=== PATIENT | female | born 1970 | race Caucasian/White ===

== ENCOUNTER 2016-09-27 18:09 | Observation (INO) | payer BC ==
[2016-09-27] MEDS ORDERED: ASPIRIN 81 MG CHEW PO STA (18:31)
--- NOTE | 2016-09-27 18:35 | ED ---
Chest Pain HPI - General Chief Complaint: Chest Pain Stated Complaint: Abn EKG Time Seen by Provider: 09/27/16 18:21 Source: patient, RN notes reviewed Mode of arrival: ambulatory Limitations: no limitations - History of Present Illness Initial Comments: This is a 46-year-old female with a history of anxiety and a family history of heart disease who states she's had episodes of chest pain that feel like a weight on her minutes for them and mid chest area. For about 2 months especially over last 3 weeks he states he been under last stress at work as she works shift for divorce many hours. She does have a prior history of right breast cancer with a lumpectomy and radiation therapy. She is not a smoker she has no known heart disease herself no other issues or lung disease or other symptoms. Or complaints no fevers chills sweats cough. She had EKG done at doctor's office which was abnormal. MD Complaint: chest pain, other - Related Data Home Medications Medication Instructions Recorded Confirmed Calcium Carbonate [Calcium] 600 mg PO DAILY 09/27/16 09/27/16 Cholecalciferol [Vitamin D3] 1,000 unit PO DAILY 09/27/16 09/27/16 Cyanocobalamin [Vitamin B-12] 500 mcg PO DAILY 09/27/16 09/27/16 Regina-3 Fatty Acids/Fish Oil [Fish 1 cap PO DAILY 09/27/16 09/27/16 Oil 1,000 mg Softgel] Vitamin E 1,000 unit PO DAILY 09/27/16 09/27/16 Allergies Allergy/AdvReac Type Severity Reaction Status Date / Time prednisone Allergy Unknown Verified 09/27/16 19:15 Review of Systems ROS Statement: Those systems with pertinent positive or pertinent negative responses have been documented in the HPI. ROS Other: All systems not noted in ROS Statement are negative. EKG Findings - EKG Results: EKG: interpreted by MATTHIEU, sinus rhythm (Sinus rhythm of 74. Interval 156 QRS duration 84 daily since QTC of 370/[address]-T wave configuration no change from the office there is evidence of inferior changes which may represent ischemia.) Past Medical History Past Medical History: Cancer Additional Past Medical History / Comment(s): breast cancer History of Any Multi-Drug Resistant Organisms: None Reported Past Surgical History: Breast Surgery Past Psychological History: Anxiety, Depression Smoking Status: Never smoker Past Alcohol Use History: Occasional Past Drug Use History: None Reported General Exam - General Exam Comments Initial Comments: This is a well-developed well-nourished awake alert oriented 3 female Limitations: no limitations General appearance: alert, anxious Head exam: Present: atraumatic, normocephalic, normal inspection Eye exam: Present: normal appearance, PERRL, EOMI. Absent: scleral icterus, conjunctival injection, periorbital swelling ENT exam: Present: normal exam, mucous membranes moist Neck exam: Present: normal inspection. Absent: tenderness, meningismus, lymphadenopathy Respiratory exam: Present: normal lung sounds bilaterally. Absent: respiratory distress, wheezes, rales, rhonchi, stridor Cardiovascular Exam: Present: regular rate, normal rhythm, normal heart sounds. Absent: systolic murmur, diastolic murmur, rubs, gallop, clicks GI/Abdominal exam: Present: soft, normal bowel sounds. Absent: distended, tenderness, guarding, rebound, rigid Extremities exam: Present: normal inspection, full ROM, normal capillary refill. Absent: tenderness, pedal edema, joint swelling, calf tenderness Back exam: Present: normal inspection Neurological exam: Present: alert, oriented X3, CN II-XII intact Psychiatric exam: Present: normal affect, normal mood Skin exam: Present: warm, dry, intact, normal color. Absent: rash Course Vital Signs 09/27/16 09/27/16 09/27/16 18:09 19:10 19:16 Temperature 99.4 F Pulse Rate 73 77 81 Respiratory 18 18 18 Rate Blood Pressure 133/81 126/79 122/74 O2 Sat by Pulse 98 100 98 Oximetry 09/27/16 09/27/16 19:25 19:33 Temperature Pulse Rate 75 80 Respiratory 18 18 Rate Blood Pressure 113/62 113/68 O2 Sat by Pulse 98 98 Oximetry Chest Pain MDM - MDM I did review the x-ray report no acute findings. Patient did get relief from oxygen and nitroglycerin. Patient will be admitted for evaluation by cardiology. Did discuss this with her and her . Also discussed with the hospitalist. Disposition Clinical Impression: Chest pain, Unstable angina pectoris, Nonspecific ST-T wave electrocardiographic changes Disposition: ADMITTED IP TO THIS [facility] Condition: Stable
[2016-09-27 18:57] LABS: Basophils % (A) 0 %; CH 31.2; Eosinophils # (A) 0.2 k/uL (0-0.7); Eosinophils % (A) 2 %; HCT 46.4 % (34.0-46.0); HDW 2.39; HGB 16.2 gm/dL (11.4-16.0); Luc # (Auto) 0.17; Luc % (Auto) 2; Lymphocytes # (A) 1.8 k/uL (1.0-4.8); Lymphocytes % (A) 18 %; MCH 31.2 pg (25.0-35.0); MCV 89.2 fL (80.0-100.0); Mean Platelet Volume 6.4; Monocytes # (A) 0.5 k/uL (0-1.0); Monocytes % (A) 5 %; Neutrophils # (A) 7.4 k/uL (1.3-7.7); Neutrophils % (A) 74 %; RDW 12.4 % (11.5-15.5); WBC 10.1 k/uL (3.8-10.6)
[2016-09-27 19:06] LABS: ALT 25 U/L (9-52); AST 19 U/L (14-36); Alkaline Phosphatase 54 U/L (38-126); Anion Gap 11 mmol/L; Blood Urea Nitrogen 14 mg/dL (7-17); Calcium 10.3 mg/dL (8.4-10.2); Carbon Dioxide 27 mmol/L (22-30); Chloride 102 mmol/L (98-107); Glucose 100 mg/dL (74-99); Non-African American GFR(MDRD) >60 (>60 ml/min/1.73 sqM); Potassium 4.2 mmol/L (3.5-5.1); Sodium 140 mmol/L (137-145); Total Bilirubin 0.6 mg/dL (0.2-1.3); Total Protein 7.8 g/dL (6.3-8.2)
[2016-09-27 19:08] LABS: INR 1.1 (<1.1); Partial Thromboplastin Time 26.1 sec (22.0-30.0); Prothrombin Time 11.2 sec (9.0-12.0)
[2016-09-27] MEDS: NITROGLYCERIN SL TABS 0.4 MG TAB SUBLINGUAL STA ×3 (19:10→19:26)
--- NOTE | 2016-09-27 19:15 | XR ---
EXAMINATION TYPE: XR chest 2V DATE OF EXAM: 09/27/2016 7:10 PM COMPARISON: 03/04/2012 HISTORY: Abnormal cardiogram. Chest pain. TECHNIQUE: Frontal and lateral views of the chest are obtained. FINDINGS: Heart and mediastinum are normal. Lungs are clear of infiltrate. There are surgical clips over the right chest. There are chest leads. There are no hilar masses. Bony thorax is intact. IMPRESSION: No cardiopulmonary disease. No adverse change compared to old exam.
[2016-09-27 19:19] LABS: Creatine Kinase 52 U/L (30-135)
[2016-09-27 19:32] LABS: Creatine Kinase MB <0.2 ng/mL (0.0-2.4); Troponin I <0.012 ng/mL (0.000-0.034)
[2016-09-27] MEDS ORDERED: HEPARIN SODIUM,PORCINE 5,000 UNIT/ML 1 ML VIAL IV ONE (20:05)
[2016-09-27] MEDS ORDERED: NITROGLYCERIN SL TABS 0.4 MG TAB SUBLINGUAL PRN (20:05)
[2016-09-27] MEDS ORDERED: HEPARIN SODIUM,PORCINE/D5W PMX 25,000 UNIT in DEXTROSE/WATER 1 500ML.BAG IV SCH (20:15)
[2016-09-27] MEDS ORDERED: SODIUM CHLORIDE 0.9% 1,000 ML IV SCH (20:15)
[2016-09-27 21:16] VITALS: BMI 25.5
[2016-09-28] MEDS: NITROGLYCERIN OINT 1 INCH/GM PACKET TOPICAL SCH ×4 (00:39→11:31)
[2016-09-28 02:20] LABS: Creatine Kinase 42 U/L (30-135)
[2016-09-28 02:33] LABS: Creatine Kinase MB <0.2 ng/mL (0.0-2.4); Troponin I <0.012 ng/mL (0.000-0.034)
[2016-09-28] MEDS ORDERED: ACETAMINOPHEN TAB 325 MG TAB PO PRN (04:47)
[2016-09-28 07:50] LABS: Cholesterol 201 mg/dL (<200); HDL Cholesterol 70 mg/dL (40-60); Triglycerides 47 mg/dL (<150)
[2016-09-28 08:02] LABS: Creatine Kinase 39 U/L (30-135)
[2016-09-28 08:13] LABS: Creatine Kinase MB <0.2 ng/mL (0.0-2.4); Troponin I <0.012 ng/mL (0.000-0.034)
[2016-09-28] MEDS ORDERED: CALCIUM CARBONATE 500 MG CHEWABLE PO SCH (09:00)
[2016-09-28] MEDS ORDERED: NON-FORMULARY DRUG (Omega-3 Fatty Acids/Fish Oil [Fish Oil 1,000 Mg Softgel] 1 CAP) PO SCH (09:00)
[2016-09-28] MEDS ORDERED: ASPIRIN 325 MG TAB PO SCH (09:00)
--- NOTE | 2016-09-28 10:15 | CONS ---
DATE OF CONSULTATION: 09/28/2016 CHIEF COMPLAINT: Chest pain. Tameka is a 46-year-old lady with no significant past medical history, who presented to the hospital complaining of chest pain. She went to her primary care physician's office with vague and nondescript discomfort in her chest that has been going on for about 2 months. She primarily describes it as stress, she is under quite a bit of stress and there is also a lot of personal anxiety. She was evaluated in the primary care physician's office. An EKG showed sinus rhythm with extensive anterolateral ST-T wave changes. We do not have an old EKG on her. Since admission she has remained pain free. Three sets of cardiac enzymes are negative. I talked to her about her EKG findings, her symptomatology, and advised her to undergo cardiac catheterization. Understanding all of the issues, she will undergo a stress Cardiolite study. If there is ischemia, she will undergo cardiac catheterization. PAST MEDICAL HISTORY: Negative for hypertension, diabetes, dyslipidemia. FAMILY HISTORY: Significant for coronary artery disease in her father. SOCIAL HISTORY: Negative for smoking, EtOH abuse or drug abuse. REVIEW OF SYSTEMS: HEENT: Unremarkable. CARDIAC: As described above. RESPIRATORY: Negative. GI: Negative. GENITOURINARY: Negative. GENITOURINARY: Negative. ALLERGY/IMMUNOLOGY: Negative. MUSCULOSKELETAL: Negative. ENDOCRINE: Negative. CONSTITUTIONAL: Negative. ONCOLOGICAL: Negative. The rest of the system review is not relevant. On exam, comfortable at rest. Vital signs are stable. There is no jugular venous distention. Carotid upstroke is normal. There is no bruit. Chest exam reveals good air entry bilaterally. Heart exam reveals first and second heart sounds. No gallop. No murmur, no rub. Abdomen is soft, nontender. Exam of the extremities did not reveal any edema. Peripheral pulses are felt. DIE SINKING MACHINE OPERATOR exam did not reveal focal neurological deficits. ASSESSMENT: 1. Abnormal EKG. 2. Precordial chest pain. PLAN: I will do a stress Cardiolite study today. If this is abnormal she will undergo cardiac catheterization. If this looks well, she will be discharged home and will have outpatient follow-up through my office.
--- NOTE | 2016-09-28 10:47 | EST ---
DATE OF SERVICE: 09/28/2016 AGE: 46Y SEX: F HT: 5'4" WT: 150 lbs. Protocol Ata: X Other: Cardiolite Stage: III Dur. of Exercise: 9 minutes *Heart Rate Blood Pressure *Rest: 89 Rest: 104/66 * *Max. Achieved: 153 Maximum BP: 112/67 85% PMHR: 100% PMHR: *METS: INDICATIONS: Chest pain. MEDICATIONS: Baseline rhythm is a sinus mechanism, rate of 89, normal axis with T wave inversion in the inferolateral leads. Baseline blood pressure 104/66 mmHg. Patient exercised on Ata protocol for 9 minutes reaching peak rate of 153 beats per minute which is equal to 87% of maximum predicted heart rate; peak blood pressure 112/67 mmHg. Test was terminated secondary to fatigue. There was no chest pain. Electrocardiographic monitoring revealed no evidence of diagnostic ischemic ST deviation. Cardiolite was injected at peak exercise. CONCLUSION: 1. Average exercise tolerance with nondiagnostic electrocardiographic stress testing secondary to baseline EKG abnormality. 2. Nuclear images will be reported separately.
--- NOTE | 2016-09-28 11:45 | NM ---
EXAMINATION TYPE: NM stress cardiolite complete DATE OF EXAM: 09/28/2016 11:20 AM COMPARISON: NONE HISTORY: Chest pain TECHNIQUE: After the intravenous administration of 10.8 mCi Tc 99m Sestamibi - Rest images obtained 45 minutes post injection. The patient exercised using a MEKA protocol and 1 minute prior to peak exercise was injected with 27.1 mCi Tc 99m Sestamibi - Stress images obtained 25 minutes post injecti on. FINDINGS: Targeted heart rate was achieved during performance of the study. Review of stress and rest SPECT casper ges demonstrates no distinct perfusion abnormality. Gated analysis shows normal wall motion with an estimated left ventricular ejection fraction of 69 %. There is globally increased activity in the rest images compared to the stress images. IMPRESSION: INFORMATION DENSITY PROBLEM VERSUS GLOBAL ISCHEMIA.
--- NOTE | 2016-09-28 11:48 | ECHOF ---
Referral Reason:chest pain/ekg change MEASUREMENTS -------- HEIGHT: 162.6 cm WEIGHT: 67.6 kg BP: RVIDd: 2.4 cm (< 3.3) IVSd: 1.2 cm (0.6 - 1.1) LVIDd: 3.6 cm (3.9 - 5.3) LVPWd: 1.0 cm (0.6 - 1.1) IVSs: 1.4 cm LVIDs: 2.6 cm LVPWs: 1.7 cm LA Diam: 2.9 cm (2.7 - 3.8) LAESV Index (A-L): 22.50 ml/m Ao Diam: 2.7 cm (2.0 - 3.7) AV Cusp: 1.8 cm (1.5 - 2.6) LA Diam: 2.8 cm (2.7 - 3.8) MV EXCURSION: 16.356 mm (> 18.000) MV EF SLOPE: 102 mm/s (70 - 150) EPSS: 0.2 cm MV E Jerardo: 0.65 m/s MV DecT: 188 ms MV A Jerardo: 0.53 m/s MV E/A Ratio: 1.23 RAP: 5.00 mmHg RVSP: 25.55 mmHg FINDINGS -------- Sinus rhythm. This was a technically good study. The left ventricular size is normal. There is borderline concentric left ventricular hypertrophy. Overall left ventricular systolic function is normal with, an EF between 55 - 60 %. The right ventricle is normal in size. Normal LA size by volume 22+/-6 ml/m2. The right atrium is normal in size. The aortic valve is trileaflet, and appears structurally normal. No aortic stenosis or regurgitation. The mitral valve is normal. Mild mitral regurgitation is present. The tricuspid valve appears structurally normal. Mild tricuspid regurgitation present. Right ventricular systolic pressure is normal at < 35 mmHg. There is no pulmonic regurgitation present. The aortic root size is normal. Normal inferior vena cava with normal inspiratory collapse consistent with estimated right atrial pressure of 5 mmHg. There is no pericardial effusion. CONCLUSIONS -------- 1. Sinus rhythm. 2. There is no pulmonic regurgitation present. 3. The aortic root size is normal. 4. Normal inferior vena cava with normal inspiratory collapse consistent with estimated right atrial pressure of 5 mmHg. 5. There is no pericardial effusion. 6. This was a technically good study. 7. There is borderline concentric left ventricular hypertrophy. 8. Overall left ventricular systolic function is normal with, an EF between 55 - 60 %. 9. Normal LA size by volume 22+/-6 ml/m2. 10. The aortic valve is trileaflet, and appears structurally normal. No aortic stenosis or regurgitation. 11. Mild mitral regurgitation is present. 12. Mild tricuspid regurgitation present. 13. Right ventricular systolic pressure is normal at < 35 mmHg. DIE REPAIR: Samia Loredo RDCS
[2016-09-28] MEDS ORDERED: VITAMIN E (DL,TOCOPHERYL ACET) 400 UNIT CAP PO SCH (12:00)
[2016-09-28] MEDS ORDERED: CYANOCOBALAMIN 500 MCG TAB PO SCH (12:00)
[2016-09-28] MEDS ORDERED: CHOLECALCIFEROL 1,000 UNIT TAB PO SCH (12:00)
[2016-09-28 12:59] VITALS: BP 110/70; PULSE 73; RESP 14; TEMP 98
--- NOTE | 2016-09-28 16:12 | P.HPIM ---
History of Present Illness H&P Date: 09/28/16 46-year-old female who is healthy and active. Patient apparently used to run about 20-30 milesper week till about a month agowas initially evaluated at her primary care physician office. Patient apparently has had a lot of anxiety, and went into their office to discuss treatment options for that. Patient stated that she was having some chest pressure during that evaluation hence was sent into the emergency room for ongoing care. Initial EKG there was some changes of ST depressions 1 mm on the inferior leads . Patient states the chest pain is intermittent in nature has been going on for a few weeks right now is not associated with activity is midsternal location nonradiating. Patient states that she also wakes up in the night with these chest pain. Or the last few weeks patient is only able to run about 3 miles states to be tired states that she has a lot of stressors at work probably has been working 80-90 hours per week. currently denies having any headaches, chest pain, difficulty breathing, nausea , vomiting, change in vision, abdominal pain, change in bowel habits, urinary urgency or frequency at this time. Review of Systems All systems: negative (noted in HPI) Past Medical History Past Medical History: Cancer Additional Past Medical History / Comment(s): breast cancer-2 lumpectomy with 2 mnths radiation History of Any Multi-Drug Resistant Organisms: None Reported Past Surgical History: Breast Surgery, Section Past Anesthesia/Blood Transfusion Reactions: No Reported Reaction, Motion Sickness Past Psychological History: Anxiety, Depression Smoking Status: Never smoker Past Alcohol Use History: Occasional Past Drug Use History: None Reported - Past Family History Father Family Medical History: Coronary Artery Disease (CAD), Hyperlipidemia, Hypertension, Myocardial Infarction (NC) Medications and Allergies Home Medications Medication Instructions Recorded Confirmed Type Calcium Carbonate [Calcium] 600 mg PO DAILY 09/27/16 09/27/16 History Cholecalciferol [Vitamin D3] 1,000 unit PO DAILY 09/27/16 09/27/16 History Cyanocobalamin [Vitamin B-12] 500 mcg PO DAILY 09/27/16 09/27/16 History [place]-3 Fatty Acids/Fish Oil [Fish 1 cap PO DAILY 09/27/16 09/27/16 History Oil 1,000 mg Softgel] Vitamin E 1,000 unit PO DAILY 09/27/16 09/27/16 History Allergies Allergy/AdvReac Type Severity Reaction Status Date / Time prednisone Allergy Anaphylaxis Verified 09/28/16 00:49 latex AdvReac Rash/Hives Verified 09/28/16 00:49 Physical Exam Vitals: Vital Signs Temp Pulse Pulse Pulse Resp BP BP 09/28/16 12:00 98.0 F 73 14 110/70 09/28/16 11:34 0 L 70 16 09/28/16 08:47 70 16 09/28/16 08:00 98.4 F 72 16 100/59 09/28/16 04:00 97.8 F 70 16 09/28/16 00:00 98.7 F 80 16 09/27/16 21:44 16 09/27/16 20:50 98.8 F 66 16 09/27/16 20:45 97.1 F L 69 18 113/69 BP Pulse Ox 09/28/16 12:00 97 09/28/16 11:34 09/28/16 08:47 09/28/16 08:00 97 09/28/16 04:00 95/62 95 09/28/16 00:00 113/50 95 09/27/16 21:44 09/27/16 20:50 112/68 99 09/27/16 20:45 98 Intake and Output 09/28/16 09/28/16 09/28/16 06:59 14:59 22:59 Intake Total 320 450 Balance 320 450 Intake: Intake, IV Titration 320 Amount Heparin Sodium,Porcine/ 160 D5w Pmx 25,000 unit In Dextrose/Water 1 500ml. bag @ 12 UNITS/KG/HR 16. 32 mls/hr IV .Q24H [facility] Rx #:[id number] Sodium Chloride 0.9% 1, 160 000 ml @ 20 mls/hr IV . Q24H [facility] Rx#:[id number] Oral 450 Other: Voiding Method Toilet Toilet # Voids 2 1 Physical exam Gen. appearance oriented 3 in no distress Neck is supple no JVD Lungs good air entry clear to auscultation no rhonchi or wheezing Heart S1-S2 heard regular rate and rhythm no murmurs appreciated Abdomen is soft nontender no organomegaly bowel sounds are intact Neurologically cranial nerves II-12 grossly intact no focal motor or sensory deficits noted Skin no abnormalities appreciated Results CBC & Chem 7: 09/27/16 18:47 09/27/16 18:47 Labs: Abnormal Lab Results - Last 24 Hours (Table) 09/28/16 09/28/16 Range/Units 01:35 06:51 APTT 45.7 H (22.0-30.0) sec Cholesterol 201 H (<200) mg/dL LDL Cholesterol, Calc 122 H (0-99) mg/dL HDL Cholesterol 70 H (40-60) mg/dL Thrombosis Risk Factor Assmnt - Choose All That Apply Each Factor Represents 1 point: Age 41-60 years Thrombosis Risk Factor Assessment Total Risk Factor Score: 1 Thrombosis Risk Factor Assessment Level: Low Risk Assessment and Plan Plan: #1 atypical chest pain ACS is ruled out #2 anxiety plan Patient underwent a stress test which showed good exercise tolerance there was some changes on the nuclear part however cardiology has evaluated the test and the patient is cleared for discharge. I did discuss patient's anxiety.she may benefit from taking SSRI. Patient would benefit from resting he states that she is attempting to change jobs at this time. we'll defer this decision to Dr. Robledo Will need a TSH and vitamin D levels this will also be deferred to Dr. Robledo.
== END 2016-09-28 16:34 | disposition home or self-care (01) ==
LOC: EC 18:09 → 3OBS 20:04
PROVIDERS: ADMIT Internal Medicine; ATTEND Internal Medicine
DX: R07.89 Other chest pain (principal); F41.9 Anxiety disorder, unspecified; R94.31 Abnormal electrocardiogram [ECG] [EKG]; Z56.3 Stressful work schedule; Z82.49 Family history of ischemic heart disease and other diseases of the circulatory system; Z85.3 Personal history of malignant neoplasm of breast; Z92.3 Personal history of irradiation; Z79.899 Other long term (current) drug therapy; Z88.8 Allergy status to other drugs, medicaments and biological substances; Z91.040 Latex allergy status; R07.2 Precordial pain
CPT/HCPCS: 96376; 96365; 99285; 36415; 93005; 93017; 93306; 85379; 83880; 80061; 80053; 82550 ×2; 82553 ×2; 83735; 84484 ×2; 85025; 85610; 85730 ×2; 71020; 78452; G0378 ×2; A9500; J1644 ×2; 96366

== ENCOUNTER 2016-10-04 06:30 | Day surgery (SDC) | payer BC ==
[2016-10-02 11:01] VITALS: BMI 25.7
[~2016-10-04 06:30] MED LIST: ALPRAZolam 0.25 MG TAB PO PRN; ALPRAZolam 0.5 MG TAB PO PRN; ASPIRIN 325 MG TAB PO STA; ATORVASTATIN 80 MG TAB PO STA; NITROGLYCERIN SL TABS 0.4 MG TAB SUBLINGUAL PRN; SODIUM CHLORIDE 0.9% 1,000 ML in EMPTY BAG 1 BAG IV ONE
[2016-10-04 07:19] VITALS: RESP 18
[2016-10-04] MEDS ORDERED: ASPIRIN 325 MG TAB PO ONE (07:47)
[2016-10-04] MEDS ORDERED: diphenhydrAMINE 50 MG/ML 1 ML VIAL IVP ONE (08:00)
[2016-10-04] MEDS ORDERED: MIDAZOLAM 2 MG/2 ML VIAL IV ONE (08:08)
[2016-10-04] MEDS ORDERED: LIDOCAINE 2% INJ 20 MG/ML SQ ONE (08:12)
[2016-10-04] MEDS: VERAPAMIL SYRINGE (5 MG/10 ML) INTRAARTER ONE ×2 (08:14→08:26)
[2016-10-04] MEDS: HYDROmorphone 2 MG/ML 1 ML SYRINGE IV ONE ×2 (08:16→08:35)
[2016-10-04] MEDS ORDERED: IOHEXOL 350 MG/ML 100 ML BOTTLE INJ ONE (08:25)
[2016-10-04] MEDS ORDERED: RX INFO: IV CONTRAST WAS GIVEN 1 EACH MISC MISCELLANE PRN (08:33)
--- NOTE | 2016-10-04 08:42 | P.PCN ---
Date of Procedure: 10/04/16 Operative Findings: CARDIAC CATHETERIZATION PERFORMING PHYSICIAN: Shad Roberts MD, RPVI PREPROCEDURE DIAGNOSES: #1 ongoing chest discomfort #2 significant family history of CAD #3 abnormal myocardial perfusion imaging stress test POSTPROCEDURE DIAGNOSES: #1 normal coronary angiogram #2 normal left ventricular systolic function #3 normal left ventricular end-diastolic pressure PROCEDURE PERFORMED: 1. Selective right and left coronary angiogram 2. Left heart catheterization 3. Left ventriculography APPROACH: Right radial artery PROCEDURE DESCRIPTION: After obtaining an informed consent and explaining the procedure benefits, risks , and complications, the patient was brought to cardiac carpenter labor supervisor. Local anesthesia was performed using lidocaine subcutaneously. The right radial artery was cannulated using Seldinger technique, the guidewire passed easily, following that we advanced a 6-Hong Konger sheath dilator assembly, the wire and dilator were removed and sheath was flushed. Following that, 2 mg of verapamil along with 3000 unit heparin were given. Selective right and left coronary angiogram using a 6-[place] Konger JR4 and JL 3.5 catheters. Following that we did left heart catheterization followed by left ventriculography using 6-H[place] Konger pigtail catheter. The procedure was completed there was no complication. SELECTIVE CORONARY ANGIOGRAM: The right coronary artery: Is a large caliber vessel and its a dominant vessel. Its angiographically normal. Bifurcates distally into PDA and PLV branches and both are angiographically normal. Left main: It is angiographically normal. Bifurcates into the left circumflex and left anterior descending artery The left circumflex: Is a large caliber vessel and its and on dominant vessel. Its angiographically normal. In the midportion gives rises into the first OM which is angiographically normal. Distally gives rises into the second OM which is a small caliber vessel and seems to be angiographically normal. The left anterior descending artery: It is a large caliber vessel. The proximal LAD is angiographically normal and gives rises into the first diagonal which seems to be angiographically normal. The mid LAD is normal as well and gives rises into second diagonal which seems to be angiographically normal. The LAD distally is angiographically normal. HEMODYNAMICS: The left ventricular end-diastolic pressure was 10 mmHg and no gradient was identified across aortic valve VENTRICULOGRAPHY: Was performed in the JOHNSON projection and using a poor injection. The left ventricular systolic function is normal with an ejection fraction of 60% and normal wall motion. POSTPROCEDURE MANAGEMENT: #1 medical treatment #2 follow-up with the patient
[2016-10-04] MEDS ORDERED: SODIUM CHLORIDE 0.9% 1,000 ML IV SCH (08:45)
[2016-10-04] MEDS ORDERED: ACETAMINOPHEN TAB 325 MG TAB PO PRN (12:03)
[2016-10-04] MEDS ORDERED: ACETAMINOPHEN TAB 325 MG TAB ONE (12:04)
[2016-10-04 12:37] VITALS: TEMP 98
[2016-10-04 15:33] VITALS: BP 92/52; PULSE 68
== END 2016-10-04 14:35 | disposition home or self-care (01) ==
LOC: CATHCVL 06:30
PROVIDERS: ATTEND Internal Medicine Interventional Cardiology
DX: I20.0 Unstable angina (principal); R94.39 Abnormal result of other cardiovascular function study; Z82.49 Family history of ischemic heart disease and other diseases of the circulatory system
CPT/HCPCS: 99152; 99153; 93458; 81025; C1894; J2001; J2250; J1170; J1200; Q9967; J1644

== ENCOUNTER → 2017-07-26 | Outpatient (CLI) | payer BC ==
--- NOTE | 2017-07-29 09:57 | MM ---
Reason for exam: screening (asymptomatic). Last mammogram was performed 5 years and 5 months ago. History: Patient has history of breast cancer at age 41. Malignant u/S right breast localization of the right breast, March 10, 2012. Malignant US RT VAD breast biopsy of the right breast, February 25, 2012. Taking hormonal contraceptives for 20 years beginning at age 20. Physical Findings: A clinical breast exam by your physician is recommended on an annual basis and results should be correlated with mammographic findings. MG 3D Screening Mammo W/Cad Bilateral CC and MLO view(s) were taken. XCCL view(s) were taken of the right breast. Prior study comparison: January 18, 2016, mammogram. January 05, 2015, mammogram. The breast tissue is heterogeneously dense. This may lower the sensitivity of mammography. Finding: Architectural distortion in the upper outer quadrant, posterior position of the right breast consistent with known lumpectomy. There is no discrete abnormality. ASSESSMENT: Benign, BI-RAD 2 RECOMMENDATION: Routine screening mammogram of both breasts in 1 year.
== END | disposition home or self-care (01) ==
LOC: RADMAMWWP 08:01
PROVIDERS: ATTEND Family Medicine
DX: Z12.31 Encounter for screening mammogram for malignant neoplasm of breast (principal)
CPT/HCPCS: 77063; 77067

== ENCOUNTER → 2018-08-21 | Outpatient (CLI) | payer OTHER ==
--- NOTE | 2018-08-25 08:50 | MM ---
Reason for exam: screening (asymptomatic). Last mammogram was performed 1 year and 1 month ago. History: Patient has history of breast cancer at age 41. Malignant u/S right breast localization of the right breast, March 10, 2012. Malignant US RT VAD breast biopsy of the right breast, February 25, 2012. Took hormonal contraceptives for 20 years beginning at age 20. Physical Findings: A clinical breast exam by your physician is recommended on an annual basis and results should be correlated with mammographic findings. MG 3D Screening Mammo W/Cad Bilateral CC and MLO view(s) were taken. Prior study comparison: July 26, 2017, bilateral MG 3d screening mammo w/cad. January 18, 2016, mammogram. The breast tissue is heterogeneously dense. This may lower the sensitivity of mammography. Post surgical changes right upper outer quadrant. No significant changes when compared with prior studies. ASSESSMENT: Benign, BI-RAD 2 RECOMMENDATION: Routine screening mammogram of both breasts in 1 year.
== END | disposition home or self-care (01) ==
LOC: RADMAMWWP 13:10
PROVIDERS: ATTEND Family Medicine
DX: Z12.31 Encounter for screening mammogram for malignant neoplasm of breast (principal)
CPT/HCPCS: 77063; 77067

== ENCOUNTER → 2019-09-17 | Outpatient (CLI) | payer OTHER ==
--- NOTE | 2019-09-17 13:56 | US ---
EXAMINATION TYPE: US transvaginal DATE OF EXAM: 09/17/2019 COMPARISON: US 02/13/2012 CLINICAL HISTORY: N92.1 Excessive and frequent menstruation. TECHNIQUE: . Transvaginal sonographic images of the pelvis were acquired. Date of LMP: 09/06/2019 EXAM MEASUREMENTS: Uterus: 7.2 x 3.7 x 3.5 cm Endometrial Stripe: 0.3 cm Right Ovary: 1.4 x 1.4 x 0.9 cm Left Ovary: 1.6 x 1.6 x 1.1 cm 1. Uterus: Anteverted Heterogeneous 2. Endometrium: wnl 3. Right Ovary: wnl as visualized 4. Left Ovary: wnl as visualized 5. Bilateral Adnexa: wnl 6. Posterior cul-de-sac: wnl Heterogeneous uterus with 1.1 cm nabothian cyst in the cervix. Endometrium is within normal limits fo r proliferative phase of menstrual cycle. No free fluid in pelvic cul-de-sac. Both ovaries seen and within normal limits in size. No suspicious adnexal mass is noted. IMPRESSION: Fairly unremarkable study.
--- NOTE | 2019-09-17 15:04 | MM ---
Reason for exam: screening (asymptomatic). Last mammogram was performed 1 year and 1 month ago. History: Patient has history of breast cancer at age 41. Family history of breast cancer in mother at age 74 and breast cancer in aunt. Malignant u/S right breast localization of the right breast, March 10, 2012. Malignant US RT VAD breast biopsy of the right breast, February 25, 2012. Took hormonal contraceptives for 20 years beginning at age 20. Physical Findings: Nurse did not find any significant physical abnormalities on exam. MG 3D Screening Mammo W/Cad Bilateral CC and MLO view(s) were taken. Prior study comparison: August 21, 2018, bilateral MG 3d screening mammo w/cad. July 26, 2017, bilateral MG 3d screening mammo w/cad. The breast tissue is heterogeneously dense. This may lower the sensitivity of mammography. No suspicious abnormality in the left breast. Post therapy change on the right breast. ASSESSMENT: Benign, BI-RAD 2 RECOMMENDATION: Routine screening mammogram of both breasts in 1 year.
== END | disposition home or self-care (01) ==
LOC: RADMAMWWP 12:55
PROVIDERS: ATTEND Family Medicine
DX: Z12.31 Encounter for screening mammogram for malignant neoplasm of breast (principal); N92.1 Excessive and frequent menstruation with irregular cycle
CPT/HCPCS: 76830; 77063; 77067

== ENCOUNTER → 2020-09-26 | Outpatient (CLI) | payer OTHER ==
--- NOTE | 2020-09-28 14:12 | MM ---
Reason for exam: screening (asymptomatic). Last mammogram was performed 1 year ago. History: Patient has history of breast cancer at age 41. Family history of breast cancer in mother at age 74 and breast cancer in aunt. Malignant u/S right breast localization of the right breast, March 10, 2012. Malignant US RT VAD breast biopsy of the right breast, February 25, 2012. Lumpectomy of the right breast, 2011. Took hormonal contraceptives for 20 years beginning at age 20. Physical Findings: A clinical breast exam by your physician is recommended on an annual basis and results should be correlated with mammographic findings. MG 3D Screening Mammo W/Cad Bilateral CC and MLO view(s) were taken. Prior study comparison: September 17, 2019, bilateral MG 3d screening mammo w/cad. August 21, 2018, bilateral MG 3d screening mammo w/cad. Post surgical changes right upper outer quadrant. No significant changes when compared with prior studies. ASSESSMENT: Benign, BI-RAD 2 RECOMMENDATION: Routine screening mammogram of both breasts in 1 year.
== END | disposition home or self-care (01) ==
LOC: RADMAMWWP 12:39
PROVIDERS: ATTEND Family Medicine
DX: Z12.31 Encounter for screening mammogram for malignant neoplasm of breast (principal)
CPT/HCPCS: 77063; 77067

== ENCOUNTER → 2021-08-30 | Outpatient (CLI) | payer OTHER ==
[2021-08-30 14:52] LABS: Basophils # (A) 0.05 X 10*3/uL (0.00-0.10); Basophils % (A) 0.8 %; Eosinophils # (A) 0.09 X 10*3/uL (0.04-0.35); Eosinophils % (A) 1.5 %; HCT 47.8 % (37.2-46.3); HGB 15.8 g/dL (12.0-15.0); Immature Grans, Automated 0.5 %; Lymphocytes # (A) 1.77 X 10*3/uL (0.90-5.00); Lymphocytes % (A) 30.1 %; MCH 30.2 pg (27.0-32.0); MCHC 33.1 g/dL (32.0-37.0); MCV 91.4 fL (80.0-97.0); Monocytes # (A) 0.45 X 10*3/uL (0.20-1.00); Monocytes % (A) 7.6 %; NRBC Per 100 WBC 0 /100 WBCS (0.0-0.0); Neutrophils % (A) 59.5 %; Platelet Count 294 X 10*3/uL (140-440); RBC 5.23 X 10*6/uL (4.10-5.20); RDW 12.4 % (11.5-14.5); WBC 5.89 X 10*3/uL (4.50-10.00)
[2021-08-30 15:10] LABS: ALT 14 U/L (8-44); AST 21 U/L (13-35); Albumin 4.6 g/dL (3.8-4.9); Albumin/Globulin Ratio 1.71 (1.60-3.17); Alkaline Phosphatase 59 U/L (41-126); Blood Urea Nitrogen 12.7 mg/dL (9.0-27.0); Calcium 9.7 mg/dL (8.7-10.3); Carbon Dioxide 25.6 mmol/L (20.0-27.5); Chloride 101 mmol/L (96-109); Chol/HDL Ratio 3.79 Ratio; Globulin 2.7 g/dL (1.6-3.3); Glucose 91 mg/dL (70-110); Non-African American GFR(CKD) 72.4 (60.0-200.0); Potassium 4.1 mmol/L (3.5-5.5); Sodium 139 mmol/L (135-145); Total Protein 7.2 g/dL (6.2-8.2); VLDL Calculation 13.48 mg/dL (5.00-40.00)
== END | disposition home or self-care (01) ==
LOC: LABWHC1 09:41
PROVIDERS: ATTEND Nurse Practitioner Family
DX: Z13.0 Encounter for screening for diseases of the blood and blood-forming organs and certain disorders involving the immune mechanism (principal); Z13.1 Encounter for screening for diabetes mellitus; Z13.228 Encounter for screening for other metabolic disorders; E78.2 Mixed hyperlipidemia
CPT/HCPCS: 36415; 80053; 80061; 83036; 84443; 85025

== ENCOUNTER → 2021-10-10 | Outpatient (CLI) | payer OTHER ==
--- NOTE | 2021-10-11 15:11 | MM ---
Reason for exam: screening (asymptomatic). Last mammogram was performed 1 year ago. History: Patient has history of breast cancer at age 41. Family history of breast cancer in mother at age 74 and breast cancer in aunt. Malignant u/S right breast localization of the right breast, March 10, 2012. Malignant US RT VAD breast biopsy of the right breast, February 25, 2012. Lumpectomy of the right breast, 2011. Took hormonal contraceptives for 20 years beginning at age 20. Physical Findings: A clinical breast exam by your physician is recommended on an annual basis and results should be correlated with mammographic findings. MG 3D Screening Mammo W/Cad Bilateral CC and MLO view(s) were taken. Prior study comparison: September 26, 2020, bilateral MG 3d screening mammo w/cad. September 17, 2019, bilateral MG 3d screening mammo w/cad. The breast tissue is heterogeneously dense. This may lower the sensitivity of mammography. There is no discrete abnormality. Stable post operative changes right breast. No significant changes when compared with prior studies. ASSESSMENT: Benign, BI-RAD 2 RECOMMENDATION: Routine screening mammogram of both breasts in 1 year.
== END | disposition home or self-care (01) ==
LOC: RADMAMWWP 10:17
PROVIDERS: ATTEND Family Medicine
DX: Z12.31 Encounter for screening mammogram for malignant neoplasm of breast (principal); Z85.3 Personal history of malignant neoplasm of breast; Z80.3 Family history of malignant neoplasm of breast
CPT/HCPCS: 77063; 77067

== ENCOUNTER → 2022-03-07 | Outpatient (CLI) | payer OTHER ==
[2022-03-07 17:53] LABS: Basophils # (A) 0.05 X 10*3/uL (0.00-0.10); Basophils % (A) 0.9 %; Eosinophils # (A) 0.07 X 10*3/uL (0.04-0.35); Eosinophils % (A) 1.2 %; HCT 44.6 % (37.2-46.3); HGB 15.1 g/dL (12.0-15.0); Immature Grans, Automated 0.3 %; Lymphocytes % (A) 34.8 %; MCH 30.6 pg (27.0-32.0); MCHC 33.9 g/dL (32.0-37.0); MCV 90.5 fL (80.0-97.0); Monocytes # (A) 0.44 X 10*3/uL (0.20-1.00); Monocytes % (A) 7.7 %; NRBC Per 100 WBC 0 /100 WBCS (0.0-0.0); Neutrophils # (A) 3.17 X 10*3/uL (1.80-7.70); Neutrophils % (A) 55.1 %; Platelet Count 264 X 10*3/uL (140-440); RBC 4.93 X 10*6/uL (4.10-5.20); RDW 12.4 % (11.5-14.5); WBC 5.75 X 10*3/uL (4.50-10.00)
[2022-03-07 18:14] LABS: ALT 130 U/L (8-44); AST 92 U/L (13-35); Albumin 4.5 g/dL (3.8-4.9); Albumin/Globulin Ratio 1.73 (1.60-3.17); Alkaline Phosphatase 74 U/L (41-126); BUN/Creat Ratio 16.37 Ratio (12.00-20.00); Blood Urea Nitrogen 13.7 mg/dL (9.0-27.0); Calcium 9.9 mg/dL (8.7-10.3); Carbon Dioxide 26.8 mmol/L (20.0-27.5); Chloride 103 mmol/L (96-109); Globulin 2.6 g/dL (1.6-3.3); Glucose 87 mg/dL (70-110); Potassium 4.3 mmol/L (3.5-5.5); Sodium 141 mmol/L (135-145); Total Protein 7.2 g/dL (6.2-8.2)
[2022-03-07 18:50] LABS: Chol/HDL Ratio 2.42 Ratio
== END | disposition home or self-care (01) ==
LOC: LABWHC1 12:36
PROVIDERS: ATTEND Family Medicine
DX: Z13.1 Encounter for screening for diabetes mellitus (principal); E78.2 Mixed hyperlipidemia; Z13.228 Encounter for screening for other metabolic disorders; Z13.0 Encounter for screening for diseases of the blood and blood-forming organs and certain disorders involving the immune mechanism; Z13.29 Encounter for screening for other suspected endocrine disorder
CPT/HCPCS: 36415; 80053; 80061; 83036; 83721; 84443; 85025

== ENCOUNTER → 2022-04-05 | Outpatient (CLI) | payer OTHER ==
--- NOTE | 2022-04-05 09:46 | US ---
EXAMINATION TYPE: US abdomen complete DATE OF EXAM: 04/05/2022 COMPARISON: Chest abdomen and pelvis 04/02/2015. CLINICAL HISTORY: R74.01 ELEVATED LIVER ENZYMES, R10.11 RUQ PAIN. TECHNIQUE: Multiple sonographic images of the abdomen are obtained. FINDINGS: EXAM MEASUREMENTS: Liver Length: 14.2 cm Gallbladder Wall: 0.2 cm CBD: 0.3 cm Spleen: 10.8 cm Right Kidney: 9.5 x 4.2 x 4.9 cm Left Kidney: 10.2 x 5.0 x 5.5 cm Pancreas: appears wnl Liver: wnl . No solid or cystic mass. No intrahepatic biliary duct dilatation. Gallbladder: no evidence of stones. No wall thickening or pericholecystic fluid. Evidence for sonographic Prince's sign: no CBD: wnl Spleen: wnl Right Kidney: hyperechoic lesion in the upper pole measuring 0.8 x 0.8 x 1.0 cm. No internal flow id entified. Not visualized on prior CT. No shadowing calculi. No hydronephrosis. Left Kidney: no evidence of hydronephrosis . No shadowing calculi or solid contour deforming mass. Upper IVC: wnl Abd Aorta: wnl IMPRESSION: 1. No acute process. 2. Hyperechoic 1 cm lesion within the right upper kidney. Etiologies include angiomyolipoma versus r enal cell carcinoma. Further evaluation with CT or MR abdomen renal mass protocol is recommended.
== END | disposition home or self-care (01) ==
LOC: RADUSWWP 08:43
PROVIDERS: ATTEND Family Medicine
DX: N28.9 Disorder of kidney and ureter, unspecified (principal); R74.01 Elevation of levels of liver transaminase levels
CPT/HCPCS: 76700

== ENCOUNTER → 2022-04-09 | Outpatient (CLI) | payer OTHER ==
[2022-04-09 16:13] LABS: ALT 49 U/L (8-44); AST 35 U/L (13-35); African American GFR (CKD) 86.4 (60.0-200.0); Albumin 4.4 g/dL (3.8-4.9); Alkaline Phosphatase 74 U/L (41-126); BUN/Creat Ratio 12.33 Ratio (12.00-20.00); Blood Urea Nitrogen 11.1 mg/dL (9.0-27.0); Calcium 9.6 mg/dL (8.7-10.3); Carbon Dioxide 27.8 mmol/L (20.0-27.5); Chloride 104 mmol/L (96-109); Chol/HDL Ratio 3.55 Ratio; Globulin 2.2 g/dL (1.6-3.3); Glucose 97 mg/dL (70-110); LDL Cholesterol,Calculated 170.6 mg/dL (0.0-131.0); Non-African American GFR(CKD) 74.6 (60.0-200.0); Potassium 4.5 mmol/L (3.5-5.5); Sodium 140 mmol/L (135-145); Total Protein 6.6 g/dL (6.2-8.2)
== END | disposition home or self-care (01) ==
LOC: LABWHC1 09:40
PROVIDERS: ATTEND Family Medicine
DX: Z13.228 Encounter for screening for other metabolic disorders (principal); E78.2 Mixed hyperlipidemia
CPT/HCPCS: 36415; 80053; 80061

== ENCOUNTER → 2022-10-18 | Outpatient (CLI) | payer OTHER ==
--- NOTE | 2022-10-19 15:21 | MM ---
Reason for Exam: Screening (asymptomatic). Last screening mammogram was performed 12 month(s) ago. Patient History: Menarche at age 14. First Full-Term at age 29. Postmenopausal. Breast cancer, right, age 41. Hormonal Contraceptives, starting at age 20 for 20 years. 2011, Lumpectomy on the Right side. 03/10/2012, Malignant Excisional Biopsy on the right side. 02/25/2012, Malignant Core Biopsy on the right side. 2011, Radiation Therapy on the right side. Maternal aunt had breast cancer, age 67. Mother had breast cancer, age 74. Prior Study Comparison: 09/17/2019 Bilateral Screening Mammogram, [facility]. 09/26/2020 Bilateral Screening Mammogram, [facility]. 10/10/2021 Bilateral Screening Mammogram, [facility]. Tissue Density: The breast tissue is heterogeneously dense. This may lower the sensitivity of mammography. Findings: Analyzed By CAD. Pattern appears stable. Postbiopsy changes are in the upper outer posterior right breast. No significant interval changes are evident. No suspicious groups of microcalcifications, spiculated or lobular masses, architectural distortion or other secondary signs of malignancy are mammographically apparent. Overall Assessment: Benign, BI-RAD 2 Management: Screening Mammogram of both breasts in 1 year. A negative mammogram report should not preclude additional follow up of suspicious palpable abnormalities. Patient should continue monthly self breast exam. A clinical breast exam by your physician is recommended on an annual basis and results should be correlated with mammographic findings. Electronically signed and approved by: Dmitry Garnica D.O. Radiologis
== END | disposition home or self-care (01) ==
LOC: RADMAMWWP 07:50
PROVIDERS: ATTEND Family Medicine
DX: Z12.31 Encounter for screening mammogram for malignant neoplasm of breast (principal); Z78.0 Asymptomatic menopausal state; Z80.3 Family history of malignant neoplasm of breast; Z85.3 Personal history of malignant neoplasm of breast
CPT/HCPCS: 77063; 77067

== ENCOUNTER → 2023-08-02 | Outpatient (CLI) | payer OTHER ==
[2023-08-02 10:15] LABS: HCT 45.8 % (34.0-46.0); HGB 15.9 gm/dL (11.4-16.0); MCH 31.5 pg (25.0-35.0); MCHC 34.6 g/dL (31.0-37.0); Mean Platelet Volume 6.9; Platelet Count 238 k/uL (150-450); RBC 5.04 m/uL (3.80-5.40); RDW 12.6 % (11.5-15.5)
[2023-08-02 10:36] LABS: ALT 19 U/L (4-34); AST 25 U/L (14-36); African American GFR (CKD) >90 (>60 ml/min/1.73 sqM); Albumin 4.4 g/dL (3.5-5.0); Alkaline Phosphatase 67 U/L (38-126); Anion Gap 5 mmol/L; Blood Urea Nitrogen 16 mg/dL (7-17); Calcium 9.9 mg/dL (8.4-10.2); Carbon Dioxide 27 mmol/L (22-30); Chloride 106 mmol/L (98-107); Glucose 97 mg/dL (74-99); Non-African American GFR(CKD) >90 (>60 ml/min/1.73 sqM); Potassium 4.5 mmol/L (3.5-5.1); Sodium 138 mmol/L (137-145); Total Bilirubin 0.7 mg/dL (0.2-1.3); Total Protein 7.3 g/dL (6.3-8.2)
--- NOTE | 2023-08-02 12:37 | BD ---
EXAMINATION TYPE: Axial Bone Density DATE OF EXAM: 08/02/2023 CLINICAL HISTORY: 53 years old Female. ICD-10 CODE: Z78.0 POST MENOPAUSAL, M81.0 AGE RELATED OSTEOPO ROSIS Height: 63.5 Weight: 162 FRAX RISK QUESTIONS: History of Fracture in Adulthood: no Secondary Osteoporosis: no RISK FACTORS HISTORY OF: Surgery to Spine/Hip(right/left)/Wrist (right/left): no MEDICATIONS: no EXAM MEASUREMENTS: Bone mineral densitometry was performed using the [employer] System. Bone mineral density as measured about the Lumbar spine is: ----- L1-L4(G/cm2): 1.204 T Score Values are as follows: ----- L1: 0.1 ----- L2: 0.0 ----- L3: 0.1 ----- L4: 0.3 ----- L1-L4: 0.2 Z Score Values are as follows: ----- L1: 0.3 ----- L2: 0.3 ----- L3: 0.4 ----- L4: 0.6 ----- L1-L4: 0.4 Bone mineral density baseline Bone mineral density about the R hip (g/cm2): 1.036 Bone mineral density about the L hip (g/cm2): 1.040 T Score values are as follows: -----R Neck: -0.8 -----L Neck: -0.8 -----R Total: 0.2 -----L Total: 0.3 Z Score values are as follows: -----R Neck: -0.1 -----L Neck: -0.1 -----R Total: 0.5 -----L Total: 0.6 Bone mineral density baseline FRAX%s: The graph provided illustrates a 4.2% chance for a major osteoporotic fx and a 0.2% chance fo r the hips probability for fx in 10 years time. IMPRESSION: Normal (Values between +1 and -1 indicate normal bone mass). Consider repeating this study in 5 year s or sooner if there is some new clinical indication. NOTE: T-SCORE=SD OF THE YOUNG ADULT MEAN.
[2023-08-02 16:45] LABS: Chol/HDL Ratio 3.39 Ratio; LDL Cholesterol,Calculated 182.3 mg/dL (0.0-131.0); VLDL Calculation 16.54 mg/dL (5.00-40.00)
== END | disposition home or self-care (01) ==
LOC: RADBDWWP 09:08
PROVIDERS: ATTEND Internal Medicine
DX: Z29.9 Encounter for prophylactic measures, unspecified (principal); M81.0 Age-related osteoporosis without current pathological fracture; Z78.0 Asymptomatic menopausal state
CPT/HCPCS: 36415; 77080; 80053; 80061; 85027

== ENCOUNTER → 2023-10-21 | Outpatient (CLI) | payer OTHER ==
[2023-10-21 15:45] LABS: ALT 14 U/L (8-44); AST 15 U/L (13-35); Albumin 4.6 g/dL (3.8-4.9); Albumin/Globulin Ratio 1.77 Ratio (1.60-3.17); Alkaline Phosphatase 60 U/L (41-126); BUN/Creat Ratio 18.43 Ratio (12.00-20.00); Blood Urea Nitrogen 12.9 mg/dL (9.0-27.0); Calcium 10.1 mg/dL (8.7-10.3); Carbon Dioxide 28.3 mmol/L (21.6-31.8); Chloride 104 mmol/L (96-109); Chol/HDL Ratio 3.27 Ratio; Creatine Kinase 83 U/L (26-186); Globulin 2.6 g/dL (1.6-3.3); Glucose 93 mg/dL (70-110); LDL Cholesterol,Calculated 182.1 mg/dL (0.0-131.0); Potassium 4.3 mmol/L (3.5-5.5); Sodium 140 mmol/L (135-145); Total Bilirubin 0.4 mg/dL (0.3-1.2); Total Protein 7.2 g/dL (6.2-8.2); VLDL Calculation 19.06 mg/dL (5.00-40.00)
--- NOTE | 2023-10-22 14:23 | MM ---
Reason for Exam: Screening (asymptomatic). Last screening mammogram was performed 12 month(s) ago. Patient History: Menarche at age 14. First Full-Term at age 29. Postmenopausal. Breast cancer, right, age 41. Hormonal Contraceptives, starting at age 20 for 20 years. 2011, Lumpectomy on the Right side. 03/10/2012, Malignant Excisional Biopsy on the right side. 02/25/2012, Malignant Core Biopsy on the right side. 2011, Radiation Therapy on the right side. Maternal aunt had breast cancer, age 67. Mother had breast cancer, age 74. Prior Study Comparison: 09/26/2020 Bilateral Screening Mammogram, [facility]. 10/10/2021 Bilateral Screening Mammogram, [facility]. 10/18/2022 Bilateral MG 3D screening mammo w/cad, [facility]. Tissue Density: The breasts are heterogeneously dense, which may obscure small masses. Findings: Analyzed By CAD. There is no suspicious group of microcalcifications or new suspicious mass in either breast. Stable postoperative distortion right breast. Overall Assessment: Benign, BI-RAD 2 Management: Screening Mammogram of both breasts in 1 year. . Patient should continue monthly self-breast exams. A clinical breast exam by your physician is recommended on an annual basis. This exam should not preclude additional follow-up of suspicious palpable abnormalities. Note on Carol Ann scores and lifetime risk: 1. A Carol Ann score greater than 3% is considered moderate risk. If this is the case, consider specialist referral to assess eligibility for a risk reducing agent. 2. If overall lifetime risk for the development of breast cancer is 20% or higher, the patient may qualify for future screening with alternating mammogram and breast MRI. Electronically signed and approved by: Last Blackburn M.D. Radiologis
== END | disposition home or self-care (01) ==
LOC: RADMAMWWP 08:54
PROVIDERS: ATTEND Internal Medicine
DX: Z12.31 Encounter for screening mammogram for malignant neoplasm of breast (principal); E78.00 Pure hypercholesterolemia, unspecified; Z85.3 Personal history of malignant neoplasm of breast; Z80.3 Family history of malignant neoplasm of breast; Z78.0 Asymptomatic menopausal state; Z29.9 Encounter for prophylactic measures, unspecified
CPT/HCPCS: 36415; 77063; 77067; 80053; 80061; 82550

== ENCOUNTER → 2023-12-17 | Outpatient (CLI) | payer OTHER ==
[2023-12-17 14:38] LABS: ALT 17 U/L (8-44); AST 22 U/L (13-35); Albumin 4.7 g/dL (3.8-4.9); Albumin/Globulin Ratio 1.96 Ratio (1.60-3.17); Alkaline Phosphatase 70 U/L (41-126); BUN/Creat Ratio 18.78 Ratio (12.00-20.00); Blood Urea Nitrogen 16.9 mg/dL (9.0-27.0); Carbon Dioxide 25.7 mmol/L (21.6-31.8); Chloride 105 mmol/L (96-109); Chol/HDL Ratio 2.96 Ratio; Creatine Kinase 105 U/L (26-186); Globulin 2.4 g/dL (1.6-3.3); Glucose 98 mg/dL (70-110); LDL Cholesterol,Calculated 160.8 mg/dL (0.0-131.0); Potassium 4.6 mmol/L (3.5-5.5); Sodium 143 mmol/L (135-145); Total Bilirubin 0.5 mg/dL (0.3-1.2); Total Protein 7.1 g/dL (6.2-8.2); VLDL Calculation 15.98 mg/dL (5.00-40.00)
== END | disposition home or self-care (01) ==
LOC: LABWHC1 09:11
PROVIDERS: ATTEND Internal Medicine
DX: E78.5 Hyperlipidemia, unspecified (principal)
CPT/HCPCS: 36415; 80053; 80061; 82550

== ENCOUNTER → 2024-09-17 | Outpatient (CLI) | payer OTHER ==
[2024-09-17 15:07] LABS: ALT 17 U/L (8-44); AST 23 U/L (13-35); Albumin 4.5 g/dL (3.8-4.9); Albumin/Globulin Ratio 1.88 Ratio (1.60-3.17); Alkaline Phosphatase 67 U/L (41-126); BUN/Creat Ratio 22.62 Ratio (12.00-20.00); Blood Urea Nitrogen 18.1 mg/dL (9.0-27.0); Chloride 103 mmol/L (96-109); Chol/HDL Ratio 2.79 Ratio; Globulin 2.4 g/dL (1.6-3.3); Glucose 93 mg/dL (70-110); LDL Cholesterol,Calculated 121.6 mg/dL (0.0-131.0); Potassium 4.2 mmol/L (3.5-5.5); Sodium 142 mmol/L (135-145); Total Bilirubin 0.4 mg/dL (0.3-1.2); Total Protein 6.9 g/dL (6.2-8.2)
== END | disposition home or self-care (01) ==
LOC: LABWHC1 09:58
PROVIDERS: ATTEND Internal Medicine
DX: E78.5 Hyperlipidemia, unspecified (principal)
CPT/HCPCS: 36415; 80053; 80061

== ENCOUNTER → 2024-10-26 | Outpatient (CLI) | payer OTHER ==
--- NOTE | 2024-10-27 07:00 | MM ---
Reason for Exam: Screening (asymptomatic). Last screening mammogram was performed 12 month(s) ago. Patient History: Menarche at age 14. First Full-Term at age 29. Postmenopausal. Breast cancer, right, age 41. Hormonal Contraceptives, starting at age 20 for 20 years. 2011, Lumpectomy on the Right side. 03/10/2012, Malignant Excisional Biopsy on the right side. 02/25/2012, Malignant Core Biopsy on the right side. 2011, Radiation Therapy on the right side. Maternal aunt had breast cancer, age 67. Mother had breast cancer, age 74. Prior Study Comparison: 10/10/2021 Bilateral Screening Mammogram, [facility]. 10/18/2022 Bilateral MG 3D screening mammo w/cad, [facility]. 10/21/2023 Bilateral MG 3D screening mammo w/cad, [facility]. Tissue Density: The breasts are heterogeneously dense, which may obscure small masses. Findings: Analyzed By CAD. Posttreatment changes to the right breast with numerous surgical clips and distortion posteriorly is redemonstrated. There is no suspicious new group of microcalcifications or new suspicious mass in either breast. Overall Assessment: Benign, BI-RAD 2 Management: Screening Mammogram of both breasts in 1 year. . Patient should continue monthly self-breast exams. A clinical breast exam by your physician is recommended on an annual basis. This exam should not preclude additional follow-up of suspicious palpable abnormalities. Note on Carol Ann scores and lifetime risk: 1. A Carol Ann score greater than 3% is considered moderate risk. If this is the case, consider specialist referral to assess eligibility for a risk reducing agent. 2. If overall lifetime risk for the development of breast cancer is 20% or higher, the patient may qualify for future screening with alternating mammogram and breast MRI. [facility], , 10/27/2024 6:57 AM. Electronically signed and approved by: Damaso Pires M.D.
== END | disposition home or self-care (01) ==
LOC: RADMAMWWP 16:12
PROVIDERS: ATTEND Internal Medicine
DX: Z12.31 Encounter for screening mammogram for malignant neoplasm of breast (principal); R92.333 Mammographic heterogeneous density, bilateral breasts; Z29.9 Encounter for prophylactic measures, unspecified; Z80.3 Family history of malignant neoplasm of breast; Z78.0 Asymptomatic menopausal state
CPT/HCPCS: 77063; 77067